=== PATIENT | female | born 1975 | race Caucasian/White ===

== ENCOUNTER 2016-06-04 08:01 | Emergency (ER) | payer SELFPAY ==
--- NOTE | 2016-06-04 20:25 | RAD ---
LEFT HAND THREE VIEWS 06/04/16 No acute fracture or dislocation was seen. The fourth and fifth metacarpals appear normal as do the carpal bones. There is evidence of a tiny avulsion at the base of the proximal phalanx of the middle finger, radial side of the third MCP point. This is obviously old. IMPRESSION: No acute bony findings. POS: HOME
== END 2016-06-04 08:57 | disposition home or self-care (01) ==
LOC: BURERS 08:01
DX: M77.9 Enthesopathy, unspecified (principal)

== ENCOUNTER 2021-07-03 11:56 | Outpatient (CLI) | payer OTHER | END 2021-07-03 11:57 | disposition home or self-care (01) | LOC: BURCT 11:56 | PROVIDERS: ATTEND Nurse Practitioner Family | DX: M31.6 Other giant cell arteritis (principal); S06.0X9A Concussion with loss of consciousness of unspecified duration, initial encounter | CPT/HCPCS: 70450 ==